=== PATIENT | female | born 1950 | race African-American/Black ===

== ENCOUNTER → 2017-04-17 | Outpatient (CLI) | payer MEDICARE ==
[~2017-04-17] MED LIST: CELEBREX PO; DYAZIDE 37.5/251 CAP PO; MEVACOR PO; NEXIUM PO; ZOLOFT PO
--- NOTE | ~2017-04-17 | MY29 ---
[facility] A Service of [facility] [place] RADIOLOGY TEXT RESULTS PATIENT: LORNA FALL LOCATION: [facility] : 50 UNIT #: [id number] AGE: [address]: Silvia Negro MD SEX: F ORDER DR: [id number] [facility] [address] [place], [place] [address] [id number] O MR#: [id number] Acc #: [id number] NAME: LORNA FALL : 1950 SEX: F STUDY DATE/TIME: 04/17/2017 15:24 UNIT: [facility] ROOM: STUDY DESCRIPTION: MY AJ SCREENING W/ CAD BILAT Attending Physician: Silvia Negro M.D. Ordering Physician: Silvia Negro M.D. Primary Care Physician: Silvia Negro M.D. MEDICAL IMAGING REPORT This report is preliminary unless electronic signature is present EXAM Digital screening mammogram, 04/17/2017; [facility]. HISTORY 66-year-old woman positive family history, mother age 68. Annual screen. COMPARISON Comparison mammograms date to 07/28/2008, with most recent 01/29/2015. TECHNIQUE Digital imaging of each breast was completed utilizing screening protocol. Review includes FDA-approved CAD device. FINDINGS Breast parenchyma is partially fatty replaced and heterogeneous with a small nodular parenchymal pattern remaining in each breast. Small oval nodule left subareolar location is stable. Mild subareolar duct prominence bilaterally. I see no suspicious mass characteristics. There are no interval occurring microcalcifications and no architectural deformity. IMPRESSION Stable benign mammogram. Annual screening recommended. Patients over the age of 40 are entered into a reminder system with target due date for the next mammogram. A result letter will also be sent to the patient. BIRADS: 2 Benign findings. Dictated by... Dale Vo M.D. [facility] A Service [facility] RADIOLOGY TEXT RESULTS PATIENT: LORNA FALL LOCATION: [facility] : 50 UNIT #: [id number] AGE: [address]: Silvia Negro MD SEX: F ORDER DR: THIS IS AN ELECTRONICALLY VERIFIED REPORT Dale Vo M.D. at 04/20/2017 7:07 AM Gary TD: 04/17/2017 18:19 JOB #: [id number] MEDICAL IMAGING REPORT Page 1 of 1 COPY
== END | disposition home or self-care (01) ==
LOC: CWCC 15:08
DX: Z12.31 Encounter for screening mammogram for malignant neoplasm of breast (principal); Z80.3 Family history of malignant neoplasm of breast
CPT/HCPCS: G0202